=== PATIENT | female | born 1975 | race Caucasian/White ===

== ENCOUNTER 2023-05-09 21:57 | Emergency (ER) | payer BC, SELFPAY ==
--- NOTE | ~2023-05-09 | CT_ITS ---
EXAMINATION: CT pelvis w con DATE: 05/09/2023 23:46 INDICATION: Left buttock pain and swelling. Hematoma. TECHNIQUE: Computed tomography (CT) of the pelvis was performed with 100 mL Omnipaque 350 intravenous contrast. Automated exposure control and iterative reconstruction technique were employed. The dose- length product was 155.15 mGy-cm. COMPARISON: None FINDINGS: There are no dilated loops of bowel. There is an intrauterine device in expected position. In the inferior left buttock, there is a 6.0 x 4.9 cm subcutaneous mass with surrounding fat strandin g. There is moderate osteoarthritis of the hips. IMPRESSION: 1. 6.0 cm subcutaneous mass in inferior left buttock. The differential diagnosis includes hematoma an d less likely neoplasm. Reviewed, dictated and finalized at location [facility] OPERATOR IMPRESSION: 1. 6.0 cm subcutaneous mass in inferior left buttock. The differential diagnosi s includes hematoma and less likely neoplasm.
[2023-05-09 22:03] VITALS: BP 122/68; PULSE 135; RESP 18; TEMP 36.7; O2SAT 98
--- NOTE | 2023-05-09 22:53 | ED.SKABFB ---
HPI - Skin/Abscess/Foreign Bdy General Chief complaint: Skin/Abscess/Foreign Body <Faith Brown PA-C - Last Filed: 05/14/23 09:25> Stated complaint: abcess <ASHLEY Bennett Last Filed: 05/14/23 09:25> Time Seen by Provider: 05/09/23 22:28 <ASHLEY Bennett Last Filed: 05/14/23 09:25> Source: patient <ASHLEY Bennett Last Filed: 05/14/23 09:25> Mode of arrival: ambulatory <ASHLEY Bennett Last Filed: 05/14/23 09:25> Limitations: no limitations <ASHLEY Bennett Last Filed: 05/14/23 09:25> History of Present Illness HPI narrative: This is a 48 year old female that presents to the ER for a possible abscess on the buttock. Reports swelling and pain to the left buttock that started tonight. Reports a subjective fever. She does not believe she had any falls or injuries. Denies drainage. <Faith Brown PA-C - Last Filed: 05/14/23 09:25> Related Data Allergies/Adverse reactions: Allergies Allergy/AdvReac Type Severity Reaction Status Date / Time No Known Allergies Allergy Verified 03/19/23 10:42 <Faith Brown PA-C - Last Filed: 05/14/23 09:25> Review of Systems Review of Systems: CONSTITUTIONAL: Denies fever SKIN: Reports edema <ASHLEY Bennett Last Filed: 05/14/23 09:25> All systems reviewed & are unremarkable except as noted in HPI and below <ASHLEY Bennett Last Filed: 05/14/23 09:25> [facility] Past Medical History Medical History: Medical History Insulin resistance PCOS (polycystic ovarian syndrome) <ASHLEY Bennett Last Filed: 05/14/23 09:25> Surgical History Surgical History: Surgical History History of breast augmentation History of <Faith Brown PA-C - Last Filed: 05/14/23 09:25> Family History Family History: Family History Other Acute myocardial infarction Alcohol abuse Breast cancer Diabetes mellitus Hypertension Lung cancer Thyroid cancer <Faith Brown PA-C - Last Filed: 05/14/23 09:25> Social History Social History: Social History Smoking status: Never smoker Alcohol intake: current Drinks per week: 2 Alcohol use details: wine Substance use: never Lack of Transportation: No Lack of Food: Never True Current Housing: I Have Housing Concerned About Future Housing: No Difficulty Paying Gas/Electric Bills: No Difficulty Paying for Meds: No Currently Unemployed: No Education: Master's Degree or Higher Difficulty w/ Childcare or Family Care: No Living arrangements: with family <Faith Brown PA-C - Last Filed: 05/14/23 09:25> Exam Narrative: GENERAL: Well-appearing, well-nourished, and in no acute distress. HEAD: Normocephalic, atraumatic. EYES: EOMI. CHEST: No respiratory distress. HEART: Regular rate EXTREMITIES: Normal range of motion. No edema. SKIN: Warm, dry, no rash. Left buttock elma-rectally with large hematoma NEURO: No focal deficits. Alert and oriented x3. PSYCH: Normal mood and affect <Faith Brown PA-C - Last Filed: 05/14/23 09:25> Course VP CLINICAL RESEARCH/PA Physician Supervision This is a was performed by both a physician and an APC. I performed all aspects of the MDM as documented w/ the following additions: 48-year-old female presenting after a fall on her backside. Patient has a hematoma. Patient discharged w/ pain medication and return precautions. All questions answered. Patient in agreement w/ disposition. <Estrada Ma MD - Last Filed: 05/10/23 05:21> Vital Signs Vital signs: Vital Signs Temperature 98.0 F 05/09/23 22:03 Pulse Rate 135 H 05/09/23 22:03 Respiratory Rate 18 05/09/23 22:03 Blood Pressure 122/68
[2023-05-09 23:15] LABS: Basophils Absolute Auto 0.1 K/mm3 (0.0-0.1); Basophils Percent Auto 0.8 % (0.2-1.2); Eosinophils Absolute Auto 0.2 K/mm3 (0-0.3); Eosinophils Percent Auto 1.2 % (0-4.4); Hematocrit 42.8 % (37.0-47.0); Hemoglobin 13.4 g/dL (12.0-15.0); Immature Granulocyte Absolute 0.06 K/mm3 (0.00-0.031); Immature Granulocyte Percent A 0.4 % (0-0.5); Lymphocytes Absolute Auto 3.23 K/mm3 (0.9-3.2); Lymphocytes Percent Auto 22.5 % (18.3-44.2); Mean Corpuscular HGB Conc 31.3 g/dl (32-36); Mean Corpuscular Hemoglobin 30.5 pg (26-34); Mean Corpuscular Volume 97.5 fl (80-100); Mean Platelet Volume 9.4 fl (7.4-10.4); Monocytes Absolute Auto 0.7 K/mm3 (0.1-0.6); Neutrophils Absolute Auto 10.1 K/mm3 (1.3-6.7); Neutrophils Percent Auto 70.1 % (45.5-73.1); Platelet Count Result 306 k/mm3 (150-375); Red Blood Count 4.39 M/mm3 (4.2-5.4); Red Cell Distribution Width 12.4 % (11.5-14.5); White Blood Count 14.3 K/mm3 (4.5-10.0)
[2023-05-09] MEDS: SODIUM CHLORIDE 0.9% IV 1,000 ML 999 ML IV CONT (23:19)
[2023-05-09 23:21] LABS: Partial Thromboplastin Time 26.1 SECONDS (22.3-36.8); Prothrombin Time 13.7 Seconds (11.1-14.7)
[2023-05-09 23:24] LABS: Anion Gap 11 mmol/L (8-16); Blood Urea Nitrogen 12 mg/dL (7-17); CRP < 0.5 mg/dL (<1.0); Calcium 8.8 mg/dL (8.4-10.2); Carbon Dioxide 23 mmol/L (22-30); Chloride 110 mmol/L (98-107); Estimated CRCL calculation 69 ml/min; Estimated Glomerular Filt Rate > 60; Glucose 98 mg/dL (65-110); Potassium 3.8 mmol/L (3.4-5.0); Sodium 144 mmol/L (137-145)
[2023-05-10] MEDS: HYDROcodone/acetaminophen (*CRX) 5-325 MG TABLET 1 TAB PO (00:05)
[2023-05-10 01:44] VITALS: BP 101/54; PULSE 115; RESP 15; O2SAT 97
[2023-05-10] MEDS: ONDANSETRON INJ 4 MG/2 ML VIAL IV PUSH (01:58)
[2023-05-10] MEDS: SODIUM CHLORIDE 0.9% IV 1,000 ML 999 ML IV CONT (01:59)
[2023-05-10 02:03] VITALS: BP 100/63; PULSE 97; RESP 15; O2SAT 99
[2023-05-10 02:29] VITALS: BP 100/63; PULSE 73; RESP 15; O2SAT 98
[2023-05-10 05:26] VITALS: BP 103/60; PULSE 94; RESP 17; O2SAT 97
== END 2023-05-10 05:36 | disposition home or self-care (01) ==
PROVIDERS: Emergency Provider Physician Assistant; PCP Family Medicine
DX: S30.0XXA Contusion of lower back and pelvis, initial encounter (principal); X58.XXXA Exposure to other specified factors, initial encounter
CPT/HCPCS: 36415; 72193; 80048; 81025; 85025; 85610; 85730; 86140; 96361; 96374; 99284; A9270; J2405; J7030; Q9967

== ENCOUNTER 2023-12-14 15:52 | Outpatient (CLI) | payer BC, SELFPAY ==
--- NOTE | ~2023-12-14 | MR_ITS ---
MRI of the cervical spine Clinical History: Radiculopathy Technique: Axial T2-weighted and gradient images, and sagittal T1-weighted, T2-weighted, and STIR jair ges were acquired. Findings: There is no fracture or subluxation of the cervical spine. Vertebral bodies maintain normal height and alignment. No bone marrow signal abnormality seen. At C2-C3 and C3-C4, there is no disc bulge or herniation. No spinal canal stenosis, cord compression, or neural foraminal narrowing at these levels. At C4-C5, there is mild disc bulge centrally. No spinal canal stenosis, cord compression, or neural f oraminal narrowing. At C5-C6, there is minimal disc osteophyte complex. No spinal canal stenosis or cord compression. The re is right neural foraminal narrowing. Left neural foramen preserved. At C6-C7, there is no significant disc bulge or herniation. No spinal canal stenosis, cord compressio n, or neural foraminal narrowing. No abnormal signal seen in the spinal cord. Paravertebral soft tissues are unremarkable. Impression: Mild degenerative spondylitic changes at C4-C5 and C5-C6, as above. Reviewed, dictated and finalized at [facility]. Impression: Mild degenerative spondylitic changes at C4-C5 and C5-C6, as above.
== END 2023-12-14 15:53 ==
LOC: MICIMG 15:53
PROVIDERS: PCP Nurse Practitioner Family; Visit Provider Nurse Practitioner Family
DX: M47.22 Other spondylosis with radiculopathy, cervical region (principal)
CPT/HCPCS: 72141